=== PATIENT | male | born 1975 | race Caucasian/White ===

== ENCOUNTER 2017-05-23 05:42 | Day surgery (SDC) | payer OTHER ==
[~2017-05-23] VITALS: Ht 182.9 cm; Wt 99.0 kg
[2017-05-23] MEDS ORDERED: FentaNYL CITRATE-PF 100 MCG/2 ML VIAL IVP ONE (05:43)
[2017-05-23] MEDS ORDERED: SUCCINYLCHOLINE CHLORIDE 20 MG/ML 10 ML VIAL IVP ONE (05:43)
[2017-05-23] MEDS ORDERED: GLYCOPYRROLATE 0.2 MG/ML VIAL IM ONE (05:43)
[2017-05-23] MEDS ORDERED: METOCLOPRAMIDE HCL 5 MG/ML 2 ML VIAL IVP ONE (05:43)
[2017-05-23] MEDS ORDERED: MIDAZOLAM HCL 2 MG/2 ML VIAL IVP ONE (05:43)
[2017-05-23] MEDS ORDERED: LIDOCAINE HCL/PF 2% 5 ML VIAL INJ ONE (05:43)
[2017-05-23] MEDS ORDERED: ALBUTEROL SULFATE HFA 90 MCG/PUFF 8 GM INHALER IH ONE (05:43)
[2017-05-23] MEDS ORDERED: ONDANSETRON HCL 4 MG/2 ML VIAL IVP ONE (05:43)
[2017-05-23] MEDS ORDERED: PROPOFOL 1% 20 ML VIAL IVP ONE (05:43)
[2017-05-23] MEDS ORDERED: CeFAZolin 2 GM/DEXTROSE 50 ML IV ONE ×2 (05:50→07:30)
[2017-05-23] MEDS ORDERED: RINGERS SOLUTION,LACTATED 1,000 ML IV ONE ×2 (05:50→06:00)
[2017-05-23] MEDS ORDERED: BUPIVACAINE HCL/PF 0.5% 30 ML VIAL ONE (06:53)
[2017-05-23] MEDS ORDERED: LIDOCAINE HCL 2%/EPI 1:200,000/PF 20 ML VIAL ONE (06:54)
[2017-05-23] MEDS ORDERED: GUM MASTIC/STORAX/MSAL/ALCOHOL LIQUID 0.67 ML VIAL TP ONE (07:34)
[2017-05-23] MEDS ORDERED: IBUPROFEN 600 MG TABLET PO PRN (08:00)
[2017-05-23] MEDS ORDERED: ACETAMINOPHEN 500 MG TABLET PO PRN (08:00)
[2017-05-23] MEDS ORDERED: FentaNYL CITRATE-PF 100 MCG/2 ML VIAL IVP PRN (08:00)
[2017-05-23] MEDS ORDERED: OXYGEN THERAPY IH SCH (08:00)
[2017-05-23] MEDS ORDERED: HYDROmorphone 2 MG/ML SYRINGE IVP PRN (08:00)
[2017-05-23] MEDS ORDERED: MEPERIDINE-PF 25 MG/ML SYRINGE IVP PRN (08:00)
== END 2017-05-23 09:15 | disposition home or self-care (01) ==
LOC: SURGERY 05:42
PROVIDERS: ATTEND Surgery
DX: L72.0 Epidermal cyst (principal); E78.5 Hyperlipidemia, unspecified; F17.210 Nicotine dependence, cigarettes, uncomplicated; F15.90 Other stimulant use, unspecified, uncomplicated; F12.90 Cannabis use, unspecified, uncomplicated; Z72.89 Other problems related to lifestyle; Z98.890 Other specified postprocedural states
CPT/HCPCS: 11402; 12031; 88304; J0330; J0690 ×2; J2250; J2405; J2704; J2765; J3010; J3490 ×3; J7120; J3535